=== PATIENT | male | born 1990 | race American Indian/Alaskan Native ===

== ENCOUNTER 2017-07-17 01:03 | Emergency (ER) | payer SELFPAY ==
--- NOTE | 2017-07-17 03:43 | Emergency Department Report ---
ED ENT HPI - General Chief complaint: Sore Throat Stated complaint: SORE THROAT Time Seen by Provider: 07/17/17 03:38 Source: patient, family Mode of arrival: Ambulatory Limitations: No Limitations - History of Present Illness Initial comments: Patient is a 27-year-old -[place] male who presents for sore throat 2 days symptoms include fever dysphagia patient is unsure of MAXIMUM TEMPERATURE as he did not take temperature at home temperature is 98.2 urine triage pain described as 4/10 burning irritation exacerbated by swallowing pt denies n/v is tolerating po intake during exam. MD complaint: sore throat Onset/Timin -: days(s) Location: throat Severity: moderate Severity scale (0 -10): 4 Quality: burning, aching Consistency: intermittent Improves with: none Worsens with: swallowing Associated Symptoms: pain with swallowing, sore throat - Related Data Previous Rx's Medication Instructions Recorded Last Taken Type Amoxicillin 500 mg PO TID #21 capsule 07/17/17 Unknown Rx Dextromethorphan/Benzocaine 1 each PO QID PRN #12 lozenge 07/17/17 Unknown Rx [Cepacol Sorethroat-Cough Farrukh] Ibuprofen 800 mg PO TID #30 tablet 07/17/17 Unknown Rx Allergies Allergy/AdvReac Type Severity Reaction Status Date / Time No Known Allergies Allergy Unverified 07/17/17 02:04 ED Dental HPI - General Chief complaint: Sore Throat Stated complaint: SORE THROAT Time Seen by Provider: 07/17/17 03:38 Source: patient, family Mode of arrival: Ambulatory Limitations: No Limitations - Related Data Previous Rx's Medication Instructions Recorded Last Taken Type Amoxicillin 500 mg PO TID #21 capsule 07/17/17 Unknown Rx Dextromethorphan/Benzocaine 1 each PO QID PRN #12 lozenge 07/17/17 Unknown Rx [Cepacol Sorethroat-Cough Farrukh] Ibuprofen 800 mg PO TID #30 tablet 07/17/17 Unknown Rx Allergies Allergy/AdvReac Type Severity Reaction Status Date / Time No Known Allergies Allergy Unverified 07/17/17 02:04 ED Review of Systems ROS: Stated complaint: SORE THROAT Other details as noted in HPI Constitutional: denies: chills, fever Eyes: denies: eye pain, eye discharge, vision change ENT: throat pain Respiratory: denies: cough, shortness of breath, wheezing Cardiovascular: denies: chest pain, palpitations Endocrine: no symptoms reported Gastrointestinal: denies: abdominal pain, nausea, diarrhea Genitourinary: denies: urgency, dysuria Musculoskeletal: denies: back pain, joint swelling, arthralgia Skin: denies: rash, lesions Neurological: denies: headache, weakness, paresthesias Psychiatric: denies: anxiety, depression Hematological/Lymphatic: denies: easy bleeding, easy bruising ED Past Medical Hx - Past Medical History Previous Medical History?: No - Surgical History Past Surgical History?: Yes Additional Surgical History: Right hand surgery - Social History Smoking Status: Never Smoker Substance Use Type: None, Marijuana - Medications Home Medications: Home Medications Medication Instructions Recorded Confirmed Last Taken Type Amoxicillin 500 mg PO TID #21 capsule 07/17/17 Unknown Rx Dextromethorphan/Benzocaine 1 each PO QID PRN #12 lozenge 07/17/17 Unknown Rx [Cepacol Sorethroat-Cough Farrukh] Ibuprofen 800 mg PO TID #30 tablet 07/17/17 Unknown Rx ED Physical Exam - General Limitations: No Limitations General appearance: alert, in no apparent distress - Head Head exam: Present: atraumatic, normocephalic - Eye Eye exam: Present: normal appearance, PERRL, EOMI Pupils: Present: normal accommodation - ENT ENT exam: Present: mucous membranes moist, TM's normal bilaterally, normal external ear exam - Expanded ENT Exam Expanded Throat exam: Positive: tonsillar erythema, tonsillomegaly. Negative: R peritonsillar mass, L peritonsillar mass - Neck Neck exam: Present: normal inspection, full ROM. Absent: tenderness, lymphadenopathy, thyromegaly - Respiratory Respiratory exam: Present: normal lung sounds bilaterally. Absent: respiratory distress, wheezes, rhonchi, chest wall tenderness - Cardiovascular Cardiovascular Exam: Present: regular rate, normal rhythm. Absent: systolic murmur, diastolic murmur, rubs, gallop - GI/Abdominal GI/Abdominal exam: Present: soft, normal bowel sounds - Rectal Rectal exam: Present: deferred - Extremities Exam Extremities exam: Present: normal inspection, full ROM, normal capillary refill. Absent: tenderness, pedal edema, joint swelling, calf tenderness - Back Exam Back exam: Present: normal inspection, full ROM. Absent: tenderness, CVA tenderness (R), CVA tenderness (L), muscle spasm, paraspinal tenderness, vertebral tenderness - Neurological Exam Neurological exam: Present: alert, oriented X3 - Psychiatric Psychiatric exam: Present: normal affect, normal mood - Skin Skin exam: Present: warm, dry, intact, normal color. Absent: rash ED Course Vital Signs 07/17/17 01:59 Temperature 98.2 F Pulse Rate 74 Respiratory 18 Rate Blood Pressure 112/71 O2 Sat by Pulse 96 Oximetry ED Medical Decision Making - Lab Data Laboratory Tests 07/17/17 Unknown Group A Strep Rapid Negative - Medical Decision Making tp presents for pharyngitis exam: moderate erythema mild edema no lesions no exudate uvula is midline there is no stridor rapid strep is negative lungs are clear bilat plan; tx for pharyngitis as pt states his daughter was tested pos to strep throat yesterday and on bx will tx with same amox, ibuprofen, cepacol lozenges pt will follow up with pcp in 2-3 days Critical care attestation.: If time is entered above; I have spent that time in minutes in the direct care of this critically ill patient, excluding procedure time. ED Disposition Clinical Impression: Pharyngitis Qualifiers: Pharyngitis/tonsillitis etiology: unspecified etiology Qualified Code(s): J02.9 - Acute pharyngitis, unspecified Disposition: DC- TO HOME OR SELFCARE Is pt being admited?: No Does the pt Need Aspirin: No Condition: Good Instructions: Pharyngitis (ED) Prescriptions: Amoxicillin 500 mg PO TID #21 capsule Dextromethorphan/Benzocaine [Cepacol Sorethroat-Cough Farrukh] 1 each PO QID PRN # 12 lozenge PRN Reason: Pain Ibuprofen 800 mg PO TID #30 tablet Referrals: HUMBLE BRENNER [Referring] - 3-5 Days Forms: Work/School Release Form(ED) Time of Disposition: 03:48
[2017-07-17 03:59] VITALS: BP 102/65
== END 2017-07-17 04:00 | disposition home or self-care (01) ==
LOC: ED 01:03
DX: J02.9 Acute pharyngitis, unspecified (principal); F12.10 Cannabis abuse, uncomplicated
CPT/HCPCS: 87116; 87430; 99283